=== PATIENT | female | born 1970 | race African-American/Black ===

== ENCOUNTER 2020-07-30 09:43 | Inpatient (IN) | payer OTHER ==
[2020-07-24 15:48] VITALS: BMI 32.5
[~2020-07-30 09:43] MED LIST: CEFAZOLIN 2 GM in DEXTROSE 5%-WATER - 50 ML IVPB ONE; CELECOXIB 200 MG CAPSULE PO ONE; VANCOMYCIN 1,000 MG in DEXTROSE 5%-WATER - 250 ML IVPB ONE
[2020-07-30] MEDS ORDERED: CELECOXIB 200 MG CAPSULE PO ONE (10:43)
[2020-07-30] MEDS ORDERED: VANCOMYCIN 1,000 MG in DEXTROSE 5%-WATER - 250 ML IVPB ONE (12:00)
[2020-07-30] MEDS ORDERED: CEFAZOLIN 2 GM in DEXTROSE 5%-WATER - 50 ML IVPB ONE (12:00)
[2020-07-30] MEDS ORDERED: BUPIVACAINE LIPOSOME/PF (EXPAREL) 266 MG/20 ML VIAL ONE (12:27)
[2020-07-30] MEDS ORDERED: MIDAZOLAM HCL 2 MG/2 ML SINGLE DOSE VIAL ONE ×2 (12:27→13:32)
[2020-07-30] MEDS ORDERED: SODIUM CHLORIDE 0.9% P/F 10 ML VIAL IJ ONE (12:28)
[2020-07-30] MEDS ORDERED: VANCOMYCIN 1,000 MG VIAL (RESTRICTED TO ID ONLY) ONE (12:57)
[2020-07-30] MEDS ORDERED: PROPOFOL 20 ML ONE ×3 (13:04)
[2020-07-30] MEDS ORDERED: TRANEXAMIC ACID 1000 MG/10 ML VIAL ONE (13:19)
[2020-07-30] MEDS ORDERED: DEXAMETHASONE SOD PHOSPHATE 4 MG/1 ML VIAL ONE (13:19)
[2020-07-30] MEDS ORDERED: ONDANSETRON 4 MG/2 ML VIAL ONE (13:19)
[2020-07-30] MEDS ORDERED: ceFAZolin SODIUM 1 GM VIAL ONE (13:19)
[2020-07-30] MEDS ORDERED: EPHEDRINE SULFATE/0.9% NACL/PF 50 MG/10 ML SYRINGE NR ONE (13:21)
[2020-07-30] MEDS ORDERED: MAG HYDROX/AL HYDROX/SIMETH 30 ML UNIT-DOSE CUP PO PRN (14:59)
[2020-07-30] MEDS ORDERED: MAGNESIUM HYDROX 2400MG/30ML ORAL SUSPENSION 30 ML CUP PO PRN (14:59)
[2020-07-30] MEDS ORDERED: LACTATED RINGERS SOLUTION 1,000 ML IV SCH ×2 (15:00→16:00)
[2020-07-30] MEDS ORDERED: ONDANSETRON 4 MG/2 ML VIAL IVPUSH PRN (15:48)
[2020-07-30] MEDS: oxyCODONE HCL 5 MG TABLET PO PRN ×2 (18:35→22:03)
[2020-07-30] MEDS: CEFAZOLIN 2 GM/D5W 2 GM/50 ML ML IVPB SCH (20:11)
[2020-07-30] MEDS ORDERED: ASPIRIN 325 MG TABLET PO SCH (22:00)
[2020-07-30] MEDS: SENNOSIDES/DOCUSATE COMBO (SENNA PLUS) TABLET (UD) PO SCH (22:03)
[2020-07-30] MEDS: CELECOXIB 200 MG CAPSULE PO SCH (22:03)
[2020-07-30] MEDS ORDERED: ASPIRIN COATED 81 MG TABLET.EC PO SCH (22:16)
[2020-07-30] MEDS: ASPIRIN COATED 81 MG TABLET.EC PO SCH (22:38)
[2020-07-31] MEDS: CEFAZOLIN 2 GM/D5W 2 GM/50 ML ML IVPB SCH ×2 (01:25→08:27)
[2020-07-31] MEDS: ONDANSETRON 4 MG/2 ML VIAL IVPUSH PRN ×2 (01:25→13:49)
[2020-07-31] MEDS: oxyCODONE HCL 5 MG TABLET PO PRN ×4 (01:38→19:39)
[2020-07-31 07:57] LABS: HEMATOCRIT 32.9 % (32.4-45.2); HEMOGLOBIN 10.2 GM/dl (10.7-15.3); MCH 23.3 pg (25.7-33.7); MEAN CELL VOLUME 75.1 fl (80-96); MEAN PLT VOLUME 8.1 fl (7.5-11.1); PLATELET COUNT 372 K/MM3 (134-434); RBC 4.38 M/mm3 (3.60-5.2); RDW 18.2 % (11.6-15.6); WHITE BLOOD COUNT 7.5 K/mm3 (4.0-10.8)
[2020-07-31 08:07] LABS: CALCIUM 8.7 mg/dl (8.5-10); CREATININE 0.9 mg/dl (0.55-1.3); POTASSIUM 4.1 mmol/L (3.5-5.1)
[2020-07-31] MEDS: CELECOXIB 200 MG CAPSULE PO SCH ×2 (09:27→21:19)
[2020-07-31] MEDS: SENNOSIDES/DOCUSATE COMBO (SENNA PLUS) TABLET (UD) PO SCH ×2 (09:27→21:19)
[2020-07-31] MEDS: PANTOPRAZOLE 40 MG TABLET PO SCH (09:27)
[2020-07-31] MEDS: ASPIRIN COATED 81 MG TABLET.EC PO SCH ×2 (09:27→21:19)
[2020-07-31] MEDS: amLODIPine BESYLATE 10 MG TABLET (FP) PO SCH (09:28)
[2020-07-31] MEDS ORDERED: ACETAMINOPHEN 500 MG TABLET (FP) PO PRN (09:49)
[2020-08-01] MEDS: ONDANSETRON 4 MG/2 ML VIAL IVPUSH PRN (02:50)
[2020-08-01] MEDS: oxyCODONE HCL 5 MG TABLET PO PRN (02:50)
[2020-08-01 07:59] LABS: HEMATOCRIT 30.6 % (32.4-45.2); HEMOGLOBIN 9.3 GM/dl (10.7-15.3); MCH 22.8 pg (25.7-33.7); MCHC 30.5 g/dl (32.0-36.0); MEAN CELL VOLUME 74.9 fl (80-96); MEAN PLT VOLUME 7.8 fl (7.5-11.1); PLATELET COUNT 312 K/MM3 (134-434); RBC 4.09 M/mm3 (3.60-5.2); RDW 18.3 % (11.6-15.6); WHITE BLOOD COUNT 7.8 K/mm3 (4.0-10.8)
[2020-08-01] MEDS: amLODIPine BESYLATE 10 MG TABLET (FP) PO SCH (09:39)
[2020-08-01] MEDS: PANTOPRAZOLE 40 MG TABLET PO SCH (09:39)
[2020-08-01] MEDS: CELECOXIB 200 MG CAPSULE PO SCH (09:39)
[2020-08-01] MEDS: ASPIRIN COATED 81 MG TABLET.EC PO SCH (09:39)
[2020-08-01] MEDS: SENNOSIDES/DOCUSATE COMBO (SENNA PLUS) TABLET (UD) PO SCH (09:39)
[2020-08-01 14:01] VITALS: TEMP 98.2
[2020-08-01 18:11] VITALS: BP 128/66; PULSE 80
== END 2020-08-01 18:13 | disposition home or self-care (01) | DRG 470 ==
LOC: UNDOADMIN 09:43 → FM/S 09:43
PROVIDERS: ADMIT Orthopaedic Surgery Orthopaedic Surgery of the Spine; ATTEND Orthopaedic Surgery Orthopaedic Surgery of the Spine
PROC: 0SRD0JZ Replacement of Left Knee Joint with Synthetic Substitute, Open Approach (ICD-10-PCS; principal; 2020-07-30 13:43)
DX: M17.12 Unilateral primary osteoarthritis, left knee (principal); I10 Essential (primary) hypertension; K76.0 Fatty (change of) liver, not elsewhere classified; K43.9 Ventral hernia without obstruction or gangrene; E66.9 Obesity, unspecified; Z68.32 Body mass index [BMI] 32.0-32.9, adult
CPT/HCPCS: 36415; 73560-TC-LT-FY; 80048; 84703; 85027; 86850; 86900; 86901; 88304-TC; 88311-TC; 94760; 97010-GP; 97116-GP; 97162-GP